=== PATIENT | female | born 1995 | race Caucasian/White ===

== ENCOUNTER 2019-04-23 22:36 | Emergency (ER) | payer OTHER ==
[~2019-04-23] VITALS: Ht 152.4 cm; Wt 44.5 kg
[2019-04-23] MEDS ORDERED: PERTUSS(ACELL),DIPH,TET VAC/PF 0.5 ML VIAL IM ONE (23:00)
[2019-04-23 23:25] VITALS: BP 157/70
== END 2019-04-24 00:17 | disposition left against medical advice (07) ==
LOC: EMS 22:40
DX: S60.552A Superficial foreign body of left hand, initial encounter (principal); S60.222A Contusion of left hand, initial encounter; W45.8XXA Other foreign body or object entering through skin, initial encounter; Y93.89 Activity, other specified; Y92.89 Other specified places as the place of occurrence of the external cause; Y99.8 Other external cause status
CPT/HCPCS: 90471; 90715